=== PATIENT | female | born 1995 | race African-American/Black ===

== ENCOUNTER 2023-06-08 15:24 | Emergency (ER) | payer SELFPAY ==
[2023-06-08] MEDS ORDERED: ACETAMINOPHEN 500 MG TAB ONE (17:32)
[2023-06-08 17:56] LABS: Specific Gravity 1.029 (1.005-1.030); Urine Bacteria None Seen /HPF (<20); Urine Bilirubin NEGATIVE (Negative); Urine Blood Negative (Negative); Urine Clarity Clear (Clear); Urine Color Light-Yellow (Yellow); Urine Crystals Unidentified Few /HPF (None Seen); Urine Glucose NEGATIVE (Negative); Urine Mucus Slight /HPF (None Seen); Urine Protein TRACE (Negative); Urine RBC <5 /HPF (None Seen); Urine Urobilinogen Normal (Normal); Urine pH 6.5 (5.0-7.0)
--- NOTE | 2023-06-08 18:08 | ER ---
Nurse's Notes [facility] Name: Praveena Benz Age: 27 yrs Sex: Female : 1995 Arrival Date: 06/08/2023 Time: 15:24 Bed 11 Private MD: Diagnosis: Bacterial vaginosis;Foreign body in right external auditory canal Presentation: 06/08 15:38 Chief complaint: Possible FB in right ear, right ear pain, headache and headache x 1 hb week, vaginal irritation with increased discharge x 2-3 days. Coronavirus screen: At this time, the client does not indicate any symptoms associated with coronavirus-19. Ebola Screen: No symptoms or risks identified at this time. Initial Sepsis Screen: Does the patient meet any 2 criteria? No. Patient's initial sepsis screen is negative. Does the patient have a suspected source of infection? No. Patient's initial sepsis screen is negative. Risk Assessment: Do you want to hurt yourself or someone else? Patient reports no desire to harm self or others. Onset of symptoms was June 08, 2023. 15:38 Method Of Arrival: Ambulatory hb 15:38 Acuity: RAYMUNDO 3 hb Triage Assessment: 15:43 General: Appears in no apparent distress. Behavior is calm, cooperative. Pain: Pain hb currently is 6 out of 10 on a pain scale. Neuro: Level of Consciousness is awake, alert, obeys commands, Oriented to person, place, time, situation. Cardiovascular: Patient's skin is warm and dry. Respiratory: Respiratory effort is even, unlabored, Respiratory pattern is regular, symmetrical. Historical: - Allergies: 15:39 No Known Allergies; hb - Home Meds: 15:39 None [Active]; hb - PMHx: 15:39 None; hb - PSHx: 15:39 None; hb - Immunization history:: Adult Immunizations up to date. - Social history:: Smoking status: Patient denies any tobacco usage or history of. - Family history:: not pertinent. Screenin:18 [facility] ED Fall Risk Assessment (Adult) History of falling in the last 3 months, bp including since admission No falls in past 3 months (0 pts). Abuse screen: Denies threats or abuse. Denies injuries from another. Nutritional screening: No deficits noted. Tuberculosis screening: No symptoms or risk factors identified. Vital Signs: 15:38 BP 140 / 99; Pulse 107; Resp 16; Temp 97(TE); Pulse Ox 100% on R/A; Weight 86.18 kg; hb Height 5 ft. 4 in. ; Pain 6/10; 15:38 Body Mass Index 32.61 (86.18 kg, 162.56 cm) hb 15:38 Pain Scale: Adult hb ED Course: 15:26 Patient arrived in ED. rg4 15:26 Eduar Redmond MD is Attending Physician. rt 15:39 Triage completed. hb 15:40 Arm band placed on. hb 17:13 Rene Mcbride, RN is Primary Nurse. bp 17:38 PREGU Sent. aw1 17:38 UAM Sent. aw1 18:00 Assist provider with pelvic exam: Set up pelvic tray. Performed by Eduar johnson Specimens sent to lab. Patient tolerated well. 18:18 Patient has correct armband on for positive identification. bp 18:23 Patient did not have IV access during this emergency room visit. bp Administered Medications: 17:37 Drug: Acetaminophen PO 1000 mg PO once Route: PO; bp 17:37 Follow up: Response: No adverse reaction bp Outcome: 18:08 Discharge ordered by MD. rt 18:22 Discharged to home ambulatory, bp 18:22 Condition: stable 18:22 Discharge instructions given to patient, Instructed on discharge instructions, follow up and referral plans. medication usage, safe sex practices, Demonstrated understanding of instructions, follow-up care, medications, Prescriptions given X 2, 18:23 Patient left the ED. bp Signatures: Alyssa Walden RN RN aa5 Sarahi Ricardo RN RN hb Garcia, Rubi rg4 Rene Mcbride RN RN bp Edaur Redmond MD MD rt Rosemary Sylvester aw1 Corrections: (The following items were deleted from the chart) 15:40 15:38 Chief complaint: Possible FB in right ear, right ear pain, headache, and vaginal hb irritation x 2-3 days. hb 15:43 15:38 Chief complaint: Possible FB in right ear, right ear pain, headache, and vaginal hb irritation x 2-3 days. Denies increased/foul vaginal discharge. hb 15:43 15:38 Acuity: RAYMUNDO 4 hb hb
--- NOTE | 2023-06-08 18:09 | EDPHYS ---
Physician Documentation [facility] Name: Praveena Benz Age: 27 yrs Sex: Female : 1995 Arrival Date: 06/08/2023 Time: 15:24 Bed 11 Private MD: ED Physician Eduar Redmond HPI: 06/08 16:40 This 27 yrs old Black Female presents to ER via Ambulatory with complaints of Vaginal rt Itching, Foreign Body In Ear. 16:40 Patient presents to the ED with possible foreign body, likely an earring to her right rt ear for the past week. She has had headache associated with that. She states that also over the past 2 to 3 days, she has had a vaginal irritation with discharge, unsure if she has a yeast infection or STD. Denies other acute complaints at this time, symptoms are mild in severity, no other aggravating alleviating factors.. Historical: - Allergies: 15:39 No Known Allergies; hb - Home Meds: 15:39 None [Active]; hb - PMHx: 15:39 None; hb - PSHx: 15:39 None; hb - Immunization history:: Adult Immunizations up to date. - Social history:: Smoking status: Patient denies any tobacco usage or history of. - Family history:: not pertinent. ROS: 16:40 Constitutional: Negative for fever, chills, and weight loss, Cardiovascular: Negative rt for chest pain, palpitations, and edema, Respiratory: Negative for shortness of breath, cough, wheezing, and pleuritic chest pain, Abdomen/GI: Negative for abdominal pain, nausea, vomiting, diarrhea, and constipation, Skin: Negative for injury, rash, and discoloration, Neuro: Negative for headache, weakness, numbness, tingling, and seizure, Psych: Negative for depression, anxiety, suicide ideation, homicidal ideation, and hallucinations, 16:40 ENT: Positive for Ear pain, possible foreign body, 16:40 : Positive for Vaginal irritation, vaginal discharge, Exam: 16:40 Constitutional: This is a well developed, well nourished patient who is awake, alert, rt and in no acute distress. Head/Face: Normocephalic, atraumatic. Chest/axilla: Normal chest wall appearance and motion. Nontender with no deformity. No lesions are appreciated. Cardiovascular: Regular rate and rhythm with a normal S1 and S2. No gallops, murmurs, or rubs. Normal PMI, no JVD. No pulse deficits. Respiratory: Lungs have equal breath sounds bilaterally, clear to auscultation and percussion. No rales, rhonchi or wheezes noted. No increased work of breathing, no retractions or nasal flaring. Abdomen/GI: Soft, non-tender, with normal bowel sounds. No distension or tympany. No guarding or rebound. No evidence of tenderness throughout. Skin: Warm, dry with normal turgor. Normal color with no rashes, no lesions, and no evidence of cellulitis. MS/ Extremity: Pulses equal, no cyanosis. Neurovascular intact. Full, normal range of motion. Neuro: Awake and alert, GCS 15, oriented to person, place, time, and situation. Cranial nerves II-XII grossly intact. Motor strength 5/5 in all extremities. Sensory grossly intact. Cerebellar exam normal. Normal gait. Psych: Awake, alert, with orientation to person, place and time. Behavior, mood, and affect are within normal limits. 16:40 ENT: Earring noted to the right EAC, external auditory canal otherwise unremarkable without discharge. 18:08 : External genitalia within normal limits, clear whitish discharge noted at the rt cervix, no cervical motion tenderness, Vital Signs: 15:38 BP 140 / 99; Pulse 107; Resp 16; Temp 97(TE); Pulse Ox 100% on R/A; Weight 86.18 kg; hb Height 5 ft. 4 in. ; Pain 6/10; 15:38 Body Mass Index 32.61 (86.18 kg, 162.56 cm) hb 15:38 Pain Scale: Adult hb Procedures: 17:23 Foreign Body Removal: Earring back, from the right ear canal, by using alligator rt clamps, Dressing: none, The patient tolerated the removal well, TM appears to be injected, edematous, however, it is intact. MDM: 15:49 Patient medically screened. rt 18:08 Differential diagnosis: UTI, BV, cervicitis, candidiasis, foreign body to ear, rt perforated TM. Data reviewed: vital signs, nurses notes. Counseling: I had a detailed discussion with the patient and/or guardian regarding the historical points, exam findings, and any diagnostic results supporting the discharge/admit diagnosis, lab results, the need for outpatient follow up. Response to treatment: the patient's symptoms have markedly improved after treatment. 06/08 15:48 Order name: Wet Prep rt 06/08 15:48 Order name: GC (Leon/Chl) Probe VAGINAL (Do not order if pt is under 13, order Culture rt instead) 06/08 17:20 Order name: UAM; Complete Time: 18:03 rt 06/08 17:20 Order name: PREGU; Complete Time: 18:03 rt 06/08 17:21 Order name: Pelvic Exam Setup; Complete Time: 17:52 rt Administered Medications: 17:37 Drug: Acetaminophen PO 1000 mg PO once Route: PO; bp 17:37 Follow up: Response: No adverse reaction bp Disposition Summary: 06/08/23 18:08 Discharge Ordered Notes: Location: Home rt Problem: new rt Symptoms: have improved rt Condition: Stable rt Diagnosis - Bacterial vaginosis rt - Foreign body in right external auditory canal rt Followup: rt - With: Private Physician - When: 2 - 3 days - Reason: Discharge Instructions: - Discharge Summary Sheet rt - Bacterial Vaginosis rt - Ear Foreign Body rt Forms: - Medication Reconciliation Form rt - Thank You Letter rt - Antibiotic Education rt - Prescription Opioid Use rt - Patient Portal Instructions rt - Leadership Thank You Letter rt Prescriptions: - Amoxicillin 875 mg Oral Tablet - take 1 tablet ORAL route every 12 hours for 10 days; 20 tablet; Refills: 0, rt Product Selection Permitted - Flagyl 500 mg Oral Tablet - take 1 tablet ORAL route every 8 hours for 10 days; 30 tablet; Refills: 0, rt Product Selection Permitted Signatures: Dispatcher [facility] Sh[facility] RN RN hb Rene Mcbride RN RN bp Eduar Redmond MD MD rt Corrections: (The following items were deleted from the chart) 17:52 17:21 Misc. Order ordered. rt aa5
[2023-06-08 20:43] VITALS: BP 140/99; TEMP 97; O2SAT 100
== END 2023-06-08 18:23 | disposition home or self-care (01) ==
LOC: ER 15:24
PROC: 09C3XZZ Extirpation of Matter from Right External Auditory Canal, External Approach (ICD-10-PCS; principal; 2023-06-08)
DX: N76.0 Acute vaginitis (principal); T16.1XXA Foreign body in right ear, initial encounter
CPT/HCPCS: 81001; 81025; 87210; 87490; 87590; 99284